=== PATIENT | male | born 1995 | race Caucasian/White ===

== ENCOUNTER 2019-02-08 22:25 | Emergency (ER) | payer BC, OTHER ==
[~2019-02-08] VITALS: Ht 172.7 cm; Wt 56.0 kg
[~2019-02-08 22:25] MED LIST: HYDR-3498 PO
[2019-02-08 22:31] VITALS: Ht 172.7 cm; Wt 56.0 kg
[2019-02-08] MEDS ORDERED: LORAZEPAM 2 MG INJ IM ONE (23:00)
[2019-02-09 04:18] VITALS: BP 121/81; PULSE 81; RESP 22
== END 2019-02-09 04:23 | disposition home or self-care (01) ==
LOC: E/R 22:25
DX: F15.980 Other stimulant use, unspecified with stimulant-induced anxiety disorder (principal); F17.210 Nicotine dependence, cigarettes, uncomplicated
CPT/HCPCS: 96372; J2060; Z7502